=== PATIENT | male | born 2000 | race Caucasian/White ===

== ENCOUNTER 2023-06-26 08:02 | Outpatient (CLI) | payer OTHER ==
--- NOTE | 2023-06-26 09:06 | Sleep Patient Instructions ---
Sleep Center Visit Summary - Patient Visit Information Reason for Visit: Initial consult for evaluation of sleep disordered breathing and other sleep issues. - Patient Instructions Instructions Attached: Sleep Study Home Monitor Additional Instructions: You will be completing a sleep study, either an in-lab polysomnography (PSG) or home sleep study (HST). You will follow-up in the sleep care office after the sleep study is completed to hear the results and talk about therapy, if needed. You will be called by our office staff to schedule this appointment, but you may contact us with any questions. - Clinic Information Contact: [facility] [address] [place] [address] [email or web address] T: [phone]
--- NOTE | 2023-06-26 09:09 | SLEEP CARE CONSULTATION ---
Information from patient questionnaire entered by Susan Hillman. I have reviewed and concur with the information entered by Susan Hillman. This document represents the service I personally performed and the decisions made by me, Cathy Maher ARNP. History of Present Illness Service Date and Time: 06/26/2023 0802 Reason for Visit: New patient Chief Complaint: reports: Unrefreshed sleep, Snoring, Observed pauses in breathing Date of Onset: 1-2YRS Usual bedtime: 0200 Time it takes to fall asleep: 1-2HRS Snores at night: Yes Observed to quit breathing while asleep: Yes Sleeps alone due to snoring: No Number of times waking at night: 2+ (from , he does not remember waking up) Reasons for waking at night: reports: Snoring, Gasping for air Toss, Turn, or Twitch while sleeping: Yes Recalls having dreams: Yes Usually gets out of bed at: 8749-1079 Feels refreshed in the morning: No Morning headache: Yes (1 time a week; last till about 4 pm) Sleepy or fatigued during the day: Yes (sometimes takes unintentional naps, 20- 30 mins on couch) Ever fallen asleep while driving: No Takes day naps: Yes (rare occurance) Dreams during day naps: No Prior sleep studies: No Additional HPI information: I had the pleasure of seeing WAYNE FLORES today regarding the possibility of him having a sleep disorder. His current complaints are snoring, observed pauses in breathing and unrefreshed sleep. He says recently he has been waking up with headaches and dry mouth. His has noticed him gasping in his sleep. He says moves around a lot in his sleep and will wake up . She seen a couple times when he stopped breathing too. His snoring is "considerably loud" but he has not woke himself up with his own snoring. He states he has walked in his sleep but this has been at least 6 months ago that it happened. He does talk in his sleep and has been known to move his arms and hit his while sleeping. - Parasomnia Symptoms Ever been unable to move upon waking from sleep: No Walks in sleep: Yes (last time over 6 months ago) Talks in sleep: Yes Ever acted out dreams in sleep: Yes (swinging arms in sleep; has hit ) Ever felt weak in the knees when startled or emotional: No Bothered by creepy, crawly, restless sensations in legs: Yes (when trying to sleep, crawly sensation) Problems with memory or concentration: Yes (space out; mainly concentration, gaps in memory sometimes) Subjective Initial [place] Sleepiness Scale score: 11 (06/25/23) Past Medical History Past Medical History: reports: Other (no significant medical history) Social History The patient's occupation is a AM. Patient is and lives in [place]. Have you smoked in the past 12 months: No Alcohol use: Yes Alcohol amount and frequency: 2-3BEERS ONCE A MONTH Caffeine use: No Family History Family history of sleep disordered breathing: No Allergies and Home Medications Known drug allergies: No Drug allergies reviewed: Yes Home medication list reviewed: Yes Allergy and home medication list: Allergies No Known Drug Allergies Allergy (Verified 06/25/23 15:31) Home Medications No Known Home Medications 06/26/23 [History] Review of Systems Weight gain over past 5 years: 10 Cardiovascular: reports: chest pain. denies: high blood pressure Gastrointestinal: denies: heartburn Neurological: reports: headaches Psychiatric: denies: Attention Deficit Hyperactivity, anxiety, depression Ear/Nose/Throat: reports: dry mouth/throat, wisdom teeth removed Endocrine: reports: sluggishness Musculoskeletal: reports: back pain Physical Exam Vital signs obtained and entered by: SUSAN Lee MA Blood Pressure: 140/79 (RIGHT ARM) Cuff size: regular Heart Rate: 61 O2 Saturation: 97 Height: 6 ft 1 in Weight: 195 lb Body Mass Index: 25.7 BMI Classification: Overweight Neck circumference: 15.5 Mouth and throat: narrow oropharynx Soft palate: long Hard palate: normal Uvula: long, edematous Uvula visualization: 25% Mallampati Class III Tongue: enlarged in size with teeth gonzalez on lateral edges Tonsils: small Neck: normal w/o lymphadenopathy or thyromegaly Heart: regular rate and rhythm Lungs: clear bilaterally Impression and Plan 1. Suspected Obstructive Sleep Apnea-Hypopnea Syndrome, as suggested by a history of loud and irregular snoring, observed cessation of breath while asleep, gasping or choking in sleep, morning headache, unrefreshed sleep, cognitive impairment, and excessive daytime sleepiness. Narrow oropharynx and obesity are common predisposing factors for obstructive sleep apnea-hypopnea syndrome. I recommend proceeding to polysomnography to confirm the diagnosis and to assess severity. If the patient has significant sleep disordered breathing, a manual CPAP titration study will also be performed to find the optimal treatment pressure. I informed the patient of what the sleep studies involve and after some discussion, obtained agreement to proceed. The pathophysiology of obstructive sleep apnea-hypopnea syndrome was discussed with the patient and health risks of cardiovascular and cerebrovascular disease if not treated. Risks of drowsy driving discussed in detail and patient advised to avoid long distance driving and to parts puller at the first sign of drowsiness. Patient agreed to plan. * Schedule polysomnography. * Avoid long distance driving or driving when feeling sleepy. * Avoid alcohol, sedative and muscle relaxant around bedtime. * Attempt to lose weight. * Review instructions provided by trained office staff on how to prepare for the sleep study. * Return for follow-up after sleep study completed. Counseling Topics: Weight control Plan: PSG Visit Type: In Office Time Spent with Patient (minutes): 30 Provider Statement: I spent 100% of the Face to Face Visit with the patient with greater than 50% spent counseling the patient and coordination of care.
[2023-06-26 09:10] VITALS: BP 140/79; O2SAT 97
== END 2023-06-26 08:03 | disposition home or self-care (01) ==
LOC: SC 08:02
PROVIDERS: ATTEND Nurse Practitioner Family
DX: G47.10 Hypersomnia, unspecified (principal); R06.83 Snoring; G47.8 Other sleep disorders; R51.9 Headache, unspecified
CPT/HCPCS: 99203; 99212

== ENCOUNTER 2023-07-30 09:35 | Outpatient (CLI) | payer OTHER | END 2023-07-30 09:36 | disposition home or self-care (01) | LOC: SC 09:35 | PROVIDERS: ATTEND Nurse Practitioner Family | DX: R06.83 Snoring (principal); G47.10 Hypersomnia, unspecified; R51.9 Headache, unspecified; G47.8 Other sleep disorders; R06.81 Apnea, not elsewhere classified; E66.3 Overweight | CPT/HCPCS: 95806 ==

== ENCOUNTER 2023-08-26 11:25 | Outpatient (CLI) | payer OTHER ==
--- NOTE | 2023-08-26 10:07 | SLEEP CARE CONSULTATION ---
Information from patient questionnaire entered by Esperanza Hillman. I have reviewed and concur with the information entered by Esperanza Hillman. This document represents the service I personally performed and the decisions made by , Cathy Maher ARNP. History of Present Illness Service Date and Time: 08/26/2023 1000 Initial [place] Sleepiness Scale score: 11 (06/25/23) Current [place] Sleepiness Scale score: 10 (08/26/23) Additional HPI information: WAYNE FLORES returns via video appointment for follow up and results of the recently performed home sleep study. The patient was informed of the following findings: No significant sleep disordered breathing with an average AHI of 3.6 and vj oxygen saturation of 90%. I explained the pathophysiology behind obstructive sleep apnea. Patient does not have sleep apnea and was advised how weight gain could increase the risk of developing sleep apnea in the future. Patient has mild snoring. Snoring can be reduced by weight loss. Snoring can also be treated with an oral appliance from a dentist. Advised to check insurance coverage. In addition, an ENT evaluation can be do to see if other treatment is indicated. Patient does not drink alcohol. Patient was cautioned about risks of drowsy driving until sleepiness symptoms resolve. Patient denies drowsy driving. Sleep Study - Results Type of Sleep Study: Home sleep study (COMPLETED 07/31/23) Prior sleep studies: No Polysomnography/Home Sleep Study results: Physician Impression: The quality of the study is good. The length of the study is adequate (> 240 minutes). Please also see the tabulated and graphic data. 1. No significant sleep disordered breathing, with an AHI of 3.6/hr and vj SaO2 of 90%. During the study, the patient had 14 apneas (14 obstructive, 0 central, 0 mixed) and 11 hypopneas. The longest episode lasted 41.5 seconds. The patient slept mostly supine (supine AHI was 3.9 and non-supine, 1.14). Allergies and Home Medications Known drug allergies: No Drug allergies reviewed: Yes Home medication list reviewed: Yes (no changes) Allergy and home medication list: Allergies No Known Drug Allergies Allergy (Verified 08/24/23 09:26) Review of Systems Review of systems same as previous: Yes (NO CHANGE) Physical Exam Vital signs obtained and entered by: ESPERANZA Lee MA Height: 6 ft (PER PT) Weight: 187 lb (PER PT) Body Mass Index: 25.3 BMI Classification: Overweight Impression and Plan Snoring but no significant sleep disordered breathing. Patient advised that often weight loss will reduce snoring as well as apnea risk, but he is close to a normal weight BMI at 25.3. I advised him to maintain a healthy weight. An oral appliance can also be used for snoring. This would require a dental consultation. Patient cautioned not to use other online appliances as can cause bite issues. Patient is advised to check if insurance will cover. An ENT consult can also be helpful to determine if any other treatment is an option. He voiced understanding. * Maintain a healthy weight, BMI 25.3 * Return as needed for follow up. Counseling Topics: Weight control Follow up with Sleep Care in: as needed Visit Type: Telehealth Video Video Type: Doximity Patient Location: [place]) Location of Provider: Office Patient agrees and consents to this telehealth visit type: Yes Time Spent with Patient (minutes): 12 Provider Statement: I spent 100% of the Telehealth Video Call with the patient with greater than 50% spent counseling the patient and coordination of care.
== END 2023-08-26 11:26 | disposition home or self-care (01) ==
LOC: SC 11:25
PROVIDERS: ATTEND Nurse Practitioner Family
DX: R06.83 Snoring (principal)